=== PATIENT | male | born 1980 | race Caucasian/White ===

== ENCOUNTER → 2020-07-03 08:10 | Outpatient (CLI) | payer OTHER, SELFPAY ==
--- NOTE | ~2020-07-03 | XR_ITS ---
EXAMINATION: XR chest 2V 07/03/2020 08:25 INDICATION: Cough PROCEDURE: 2 view chest COMPARISON: 03/17/2016 FINDINGS: The lungs are clear. The cardiomediastinal silhouette is within normal limits. There are no pleural effusions. There is no pneumothorax suspected. IMPRESSION: 1: NO ACUTE CARDIOPULMONARY DISEASE. Reviewed, dictated and finalized at location A. [employer]ANCE [employer]IER
== END ==
PROVIDERS: PCP Nurse Practitioner; Visit Provider Nurse Practitioner
DX: R05 Cough (principal)
CPT/HCPCS: 71046

== ENCOUNTER 2020-09-13 09:39 | Outpatient (CLI) | payer OTHER, SELFPAY ==
--- NOTE | 2020-09-13 12:00 | NEURO_ITS ---
Impression: # Complains of pain and numbness in upper extremities. # Evolving left Carpal Tunnel Syndrome. # Normal nerve conduction study otherwise. # Normal needle/EMG exam. # Clinical correlation recommended. Nerve Conduction Studies Anti Sensory Summary Table Stim Site NR Peak (ms) P-T Amp (?V) Site1 Site2 Delta-P (ms) Dist (cm) José Luis (m/s) Left Median Anti Sensory (2-3nd Digit) Wrist 3.7 31.6 Wrist 2-3nd Digit 3.7 14.0 38 Wrist 3.9 26.9 Wrist 2-3nd Digit 3.7 14.0 38 Right Median Anti Sensory (2-3nd Digit) Wrist 3.2 68.5 Wrist 2-3nd Digit 3.2 14.0 44 Wrist 3.3 40.9 Wrist 2-3nd Digit 3.2 14.0 44 Left Radial Anti Sensory (Base 1st Digit) Wrist 2.3 17.5 Wrist Base 1st Digit 2.3 0.0 Right Radial Anti Sensory (Base 1st Digit) Wrist 2.5 8.3 Wrist Base 1st Digit 2.5 0.0 Left Ulnar Anti Sensory (5th Digit) Wrist 3.2 59.0 Wrist 5th Digit 3.2 14.0 44 Right Ulnar Anti Sensory (5th Digit) Wrist 2.7 76.5 Wrist 5th Digit 2.7 14.0 52 Motor Summary Table Stim Site NR Onset (ms) O-P Amp (mV) Site1 Site2 Delta-0 (ms) Dist (cm) José Luis (m/s) Left Median Motor (Abd Poll Brev) Wrist 3.8 2.9 Elbow Wrist 5.3 30.0 57 Elbow 9.1 6.3 Right Median Motor (Abd Poll Brev) Wrist 3.4 6.1 Elbow Wrist 5.9 30.0 51 Elbow 9.3 3.1 Left Ulnar Motor (Abd Dig Minimi) Wrist 2.5 4.9 A Elbow Wrist 5.4 31.0 57 A Elbow 7.9 2.0 Right Ulnar Motor (Abd Dig Minimi) Wrist 3.0 6.3 A Elbow Wrist 5.5 31.0 56 A Elbow 8.5 5.4 F Wave Studies NR F-Lat (ms) L-R F-Lat (ms) Left Median (Mrkrs) (Abd Poll Brev) 31.02 0.33 Right Median (Mrkrs) (Abd Poll Brev) 30.68 0.33 Left Ulnar (Mrkrs) (Abd Dig Min) 29.45 0.26 Right Ulnar (Mrkrs) (Abd Dig Min) 29.71 0.26 EMG Side Muscle Nerve Root Ins Act Fibs Amp Dur Recrt Comment Right 1stDorInt Ulnar C8-T1 Nml Nml Nml Nml Nml Right Ext Indicis Radial (Post Int) C7-8 Nml Nml Nml Nml Nml Right Ext Digitorum Radial (Post Int) C7-8 Nml Nml Nml Nml Nml Right BrachioRad Radial C5-6 Nml Nml Nml Nml Nml Right PronatorTeres Median C6-7 Nml Nml Nml Nml Nml Right Abd Poll Brev Median C8-T1 Nml Nml Nml Nml Nml Left 1stDorInt Ulnar C8-T1 Nml Nml Nml Nml Nml Left Ext Indicis Radial (Post Int) C7-8 Nml Nml Nml Nml Nml Left Ext Digitorum Radial (Post Int) C7-8 Nml Nml Nml Nml Nml Left BrachioRad Radial C5-6 Nml Nml Nml Nml Nml Left PronatorTeres Median C6-7 Nml Nml Nml Nml Nml Left Abd Poll Brev Median C8-T1 Nml Nml Nml Nml Nml Right ABD Dig Min Ulnar C8-T1 Nml Nml Nml Nml Nml Left ABD Dig Min Ulnar C8-T1 Nml Nml Nml Nml Nml MTDD
== END 2020-09-13 09:40 | disposition home or self-care (01) ==
PROVIDERS: PCP Internal Medicine; Visit Provider Psychiatry & Neurology Neurology
DX: G56.02 Carpal tunnel syndrome, left upper limb (principal)
CPT/HCPCS: 95886; 95911

== ENCOUNTER 2021-01-16 06:56 | Emergency (ER) | payer OTHER, SELFPAY ==
--- NOTE | ~2021-01-16 | XR_ITS ---
EXAMINATION: XR elbow RT min 3V DATE: 01/16/2021 07:59 INDICATION: Erythema and swelling at the right elbow post dogbite 2 days prior TECHNIQUE: Anteroposterior, two oblique and lateral views of the right elbow were obtained. COMPARISON: None. FINDINGS: Alignment is normal. No fracture or joint effusion. Joint spaces are normal. Soft tissue swelling pos terior to the right elbow. No subcutaneous gas or radiopaque foreign body. IMPRESSION: 1. No joint effusion or osseous abnormality. Reviewed, dictated and finalized at location A.
[2021-01-16 07:00] VITALS: BP 122/76; PULSE 100; RESP 19; TEMP 37.1; O2SAT 100
[2021-01-16 07:11] VITALS: BP 136/83; PULSE 71; RESP 14; TEMP 37.1; O2SAT 99
--- NOTE | 2021-01-16 07:22 | ED.GENADULT ---
HPI - General Adult General Chief complaint: Wound/Laceration Stated complaint: dog bite right arm Time Seen by Provider: 01/16/21 07:21 Source: patient and RN notes reviewed Limitations: no limitations History of Present Illness HPI narrative: Patient is 40 years old white male presents with dog bite to the right elbow 3 days ago. History of dog, and none on or location of the dog. Patient was walking the street at night, was dog, got attacked by a dog. Currently patient complaining of severe pain and swelling at the site of the bite. Unknown tetanus. Patient denies any fever, chills, nausea, vomiting Related Data Home Medications Medication Instructions Recorded Confirmed mirtazapine 45 mg tablet 45 mg PO DAILY tablet 05/02/20 11/08/20 clonazepam 0.5 mg tablet 0.5 mg PO TID tablet 07/17/20 11/08/20 duloxetine [Cymbalta] 120 mg PO DAILY 01/16/21 Allergies Allergy/AdvReac Type Severity Reaction Status Date / Time No Known Allergies Allergy Verified 01/16/21 07:12 Review of Systems Review of Systems: Narrative: CONSTITUTIONAL: Denies fever, chills, or sweats. EYES: Denies visual changes, redness, or discharge. ENT: Denies rhinorrhea, congestion, sore throat, or otalgia. CARDIOVASCULAR: Denies chest pain, palpitations, or edema. RESPIRATORY: Denies cough or dyspnea. GASTROINTESTINAL: Denies abdominal pain, nausea, vomiting, or diarrhea. GENITOURINARY: Denies dysuria or hematuria. SKIN: Denies rash or itching. MUSCULOSKELETAL: Denies back pain, joint pain, or myalgia. NEUROLOGIC: Denies headache, numbness, or weakness. PSYCHIATRIC: Denies anxiety or depression. [facility] Past Medical History Medical History Anxiety Anxiety Arthritis Chronic pain Depression Depression Disc degeneration Graves disease Sciatica Thyroid disorder Surgical History Surgical History H/O wrist surgery x4 Family History Family History Grandparent Lung cancer Throat cancer Mother Mental health problem Other Leukemia Social History Social History Smoking status: Former smoker Alcohol intake: never Substance use: current Substance use type: marijuana Exam Narrative: Exam Narrative: General appearance: Well-developed, well-nourished Skin: Normal color, right upper extremity showed diffuse swelling, erythema, tenderness at the distal right arm and the proximal right forearm with multiple puncture wounds, no discharge the size of the largest bite is 1 cm Head: Normocephalic, nontraumatic Eyes: Clear conjunctiva ENT: Oropharynx normal, ears normal, nose normal Neck: Supple, nontender Chest and respiratory: Airway patent, no respiratory distress, no accessory muscle use Heart: Regular rate/rhythm Abdomen: Soft, nontender, no organomegaly, quiet bowel sounds Vascular: Normal peripheral pulses, normal capillary refill. 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 Patient received a tetanus shot, rabies immunoglobulin and started on rabies vaccine. Patient also received IV vancomycin, will be discharged on Augmentin. Patient tolerated the management in the ED, and comfortable to go home. Vital Signs Vital signs: Vital Signs Temperature 37.1 C 01/16/21 07:00 Pulse Rate 100 01/16/21 07:00 Respiratory Rate 19 01/16/21 07:00 Blood Pressure 122/76 01/16/21 07:00 Pulse Oximetry 100
[2021-01-16] MEDS: TETANUS,DIPHTHERIA,AC PERTUSSIS ADULT (0.5 ML) BOOSTRIX IM (08:34)
[2021-01-16 08:37] VITALS: BP 107/71; PULSE 59; RESP 12; O2SAT 98
[2021-01-16] MEDS: RABIES VACCINE (RABAVERT) 2.5 UNITS VIAL IM (08:59)
--- NOTE | 2021-01-16 09:24 | PC.NURSE ---
Infection Disease Nurse notified, faxed bite report to [facility].
--- NOTE | 2021-01-16 09:39 | PC.NURSE ---
Nurse to room due to IV pump beeping. Pt had removed his IV because the bag was empty and he was afraid air was going into him.
[2021-01-16 09:47] VITALS: BP 112/81; PULSE 58; RESP 12; O2SAT 98
[2021-01-16 10:10] VITALS: BP 112/81; PULSE 58; RESP 12; O2SAT 99
== END 2021-01-16 10:12 | disposition home or self-care (01) ==
PROVIDERS: Emergency Provider Emergency Medicine; PCP Internal Medicine
DX: S51.051A Open bite, right elbow, initial encounter (principal); W54.0XXA Bitten by dog, initial encounter; Z29.14 Encounter for prophylactic rabies immune globulin; Z23 Encounter for immunization
CPT/HCPCS: 73080; 90471; 90675; 90715; 96365; 96372; 99284; J3370

== ENCOUNTER 2021-08-07 09:16 | Outpatient (CLI) | payer OTHER, SELFPAY ==
--- NOTE | ~2021-08-07 | MR_ITS ---
EXAMINATION: MR lumbar spine wo con DATE: 08/07/2021 10:22 INDICATION: Low back pain. TECHNIQUE: Magnetic resonance imaging (MRI) of the lumbar spine was performed without intravenous con trast. Sequences included sagittal T2-weighted FSE, sagittal T2-weighted FS FSE, sagittal T1-weighted FSE, and axial T2-weighted FSE. COMPARISON: None FINDINGS: Bone alignment is normal. Vertebral body heights are normal. There is mildly decreased disc height at L3-L4 and L4-L5. The distal spinal cord signal intensity is normal. The conus medullaris i s at T12-L1. The following disc levels are specifically discussed: L1-L2: The disc does not extend beyond the endplate margin. There is mild bilateral facet joint osteo arthritis. There is no neural foraminal stenosis. There is no central canal stenosis. L2-L3: The disc does not extend beyond the endplate margin. There is mild bilateral facet joint osteo arthritis. There is no neural foraminal stenosis. There is no central canal stenosis. L3-L4: There is a right foraminal protrusion. There is mild bilateral facet joint osteoarthritis. The re is mild right neural foraminal stenosis. There is no central canal stenosis. L4-L5: The disc is bulging. There is severe bilateral facet joint osteoarthritis. There is mild bilat eral neural foraminal stenosis. There is mild central canal stenosis. L5-S1: There is a left central protrusion. There is moderate right and severe left facet joint osteoa rthritis. There is mild bilateral neural foraminal stenosis. There is mild central canal stenosis. IMPRESSION: 1. Mild lumbar spondylosis. Reviewed, dictated and finalized at location E. E BUILDER IMPRESSION: 1. Mild lumbar spondylosis.
== END 2021-08-07 09:17 | disposition home or self-care (01) ==
LOC: ANHIMG 09:22
PROVIDERS: PCP Internal Medicine
DX: M47.817 Spondylosis without myelopathy or radiculopathy, lumbosacral region (principal); M48.07 Spinal stenosis, lumbosacral region
CPT/HCPCS: 72141; 72148